=== PATIENT | female | born 1985 | race Asian ===

== ENCOUNTER 2019-12-21 19:45 | Inpatient (IN) | payer BC ==
[~2019-12-21] VITALS: Ht 160 cm; Wt 47.7 kg
[2019-12-21] MEDS ORDERED: PANTOPRAZOLE 80 MG in SODIUM CHLORIDE 0.9% 50 ML IV ONE (20:30)
[2019-12-21] MEDS ORDERED: SODIUM CHLORIDE 0.9% 1,000ML IVBOLUS ONE ×2 (20:30)
[2019-12-21] MEDS ORDERED: OCTREOTIDE 500 MCG in SODIUM CHLORIDE 0.9% 99 ML IV PRN (20:30)
[2019-12-21] MEDS ORDERED: OCTREOTIDE 100MCG/ML, 1ML (0.1MG/ML) IV ONE (20:30)
[2019-12-21] MEDS ORDERED: PANTOPRAZOLE 80 MG in SODIUM CHLORIDE 0.9% 100 ML IV SCH (20:30)
[2019-12-21] MEDS ORDERED: SODIUM CHLORIDE FLUSH 10ML SYR IVF ONE (20:30)
--- NOTE | 2019-12-21 20:37 | NUR ---
TWO UNITS UNCROSS-MATCHED PRBCs INFUSING NOW PER ORDERS. PT WITH VSS, HAD ABOUT ANOTHER 50ML HEMATEMESIS, REMAINS A&OX4, C/O SHARP MID ABD PAIN 04/18. FAMILY AT .
--- NOTE | 2019-12-21 20:39 | NUR ---
PT MOVED TO TRAUMA 2.
[2019-12-21 20:44] LABS: MEAN CORPUSCULAR HEMOGLOBIN 33.6 pg (27.0-34.8); MEAN CORPUSCULAR HGB CONC 33.8 g/dL (32.4-35.8); MEAN CORPUSCULAR VOLUME 99.4 fL (80-100); MEAN PLATELET VOLUME 7.7 fL (7.4-10.4); PLATELET COUNT 353 x10^3/uL (130-400); RED BLOOD COUNT 4.06 x10^6/uL (3.82-5.3); RED CELL DISTRIBUTION WIDTH 13.9 % (9.6-15.2)
[2019-12-21 20:46] LABS: INTERNATIONAL NORMALIZED RATIO 0.96 (0.93-1.1); PROTHROMBIN TIME 10.2 Seconds (9.6-11.5)
[2019-12-21 20:47] LABS: ALANINE AMINOTRANSFERASE 35 U/L (12-78); ALBUMIN 4.1 g/dL (3.4-5.0); ANION GAP 22 mmol/L (5-15); CALCIUM 9.2 mg/dL (8.5-10.1); CHLORIDE 96 mmol/L (98-107); CREATININE 1.14 mg/dL (0.55-1.02)
[2019-12-21 20:52] LABS: ALKALINE PHOSPHATASE 69 U/L (45-117); BILIRUBIN,TOTAL 0.8 mg/dL (0.2-1.0); TOTAL PROTEIN 8.5 g/dL (6.4-8.2)
[2019-12-21] MEDS ORDERED: PROPOFOL 10 MG/ML, 20ML ONE ×2 (20:54→21:22)
--- NOTE | 2019-12-21 20:58 | NUR ---
2 UNITS PRBCs DONE TRANSFUSING. NO S/S OF REACTION NOTED. PT REMAINS A&OX4, STABLE. NO MORE HEMATEMESIS AT THIS TIME. REPORTED TO KORTNEY CABEZAS. DR. MOFFETT AT FOR EGD.
--- NOTE | 2019-12-21 21:00 | NUR ---
REPORT RECEIVED AND CARE ASSUMED FOR PROCEDURE. 2 UNITS BLOOD TRANSFUSED. NO S/S OF ACUTE REACTION. PT AND ROOM PREPPED FOR ENDOSCOPY. DR MOFFETT AT BEDSIDE TO SPEAK WITH PT.
[2019-12-21 21:09] LABS: BASOPHILS # (AUTO) 0.06 x10^3/uL (0-0.1); BASOPHILS % (AUTO) 1 % (0-1); EOSINOPHILS # (AUTO) 0.11 x10^3/uL (0-0.4); EOSINOPHILS % (AUTO) 1 % (1-7); LYMPHOCYTES # (AUTO) 5.03 x10^3/uL (1-3.4); LYMPHOCYTES % (AUTO) 52 % (22-44); MD SCAN; MONOCYTES # (AUTO) 0.64 x10^3/uL (0.2-0.8); MONOCYTES % (AUTO) 7 % (2-9); NEUTROPHILS # (AUTO) 3.83 x10^3/uL (1.8-6.8); NEUTROPHILS % (AUTO) 40 % (42-75)
[2019-12-21] MEDS ORDERED: PROPOFOL 10 MG/ML, 20ML IVPush ONE ×2 (21:30→22:00)
--- NOTE | 2019-12-21 21:40 | NUR ---
PROCEDURE COMPLETED. TOTAL 590 MG PROPOFOL GIVEN. VSS. PT AWAKE AND ASKING QUESTIONS. MOVING ALL EXTREMITIES.
[2019-12-21] MEDS ORDERED: ONDANSETRON 2MG/ML, 2ML ONE (22:02)
--- NOTE | 2019-12-21 22:05 | NUR ---
PT C/O INCREASED NAUSEA. INTERMITTENT MILD DRY HEAVING. NO ACTIVE VOMITING NOTED. DISCUSSED WITH ERP AND ORDER FOR ZOFRAN RECEIVED.
[2019-12-21] MEDS ORDERED: ONDANSETRON 2MG/ML, 2ML IVPush ONE (22:30)
[2019-12-21] MEDS ORDERED: PROMETHAZINE 25 MG/ML, 1ML ONE (22:38)
--- NOTE | 2019-12-21 22:43 | NUR ---
PT ASSISTED TO BR VIA W/C. STEADY GAIT. CONTINUES WITH SEVERE NAUSEA. DISCUSSED WITH ERP AND ORDERS FOR 25 MG PHENERGAN IM RECEIVED. PT MEDICATED PER JAN.
[2019-12-21] MEDS ORDERED: PROMETHAZINE 25 MG/ML, 1ML IM ONE (23:00)
--- NOTE | 2019-12-21 23:24 | NUR ---
Pt resting comfortably with no s/s of acute distress. States nausea resolved at this time. Denies needs. VSS. Sinus on monitor. Call light in reach. Awaiting transfer to floor.
[2019-12-22 00:15] VITALS: BP 128/91
[2019-12-22 01:05] VITALS: BP 128/86
[2019-12-22] MEDS ORDERED: FOLIC ACID 1 MG TABLET PO ONE (02:30)
[2019-12-22] MEDS ORDERED: POLYETHYLENE GLYCOL 17 GM PACKET PO PRN (02:30)
[2019-12-22] MEDS ORDERED: LORazepam 1MG TABLET PO PRN ×4 (02:30)
[2019-12-22] MEDS ORDERED: ACETAMINOPHEN 325 MG TABLET PO PRN (02:30)
[2019-12-22] MEDS ORDERED: BISACODYL 10 MG SUPP PR PRN (02:30)
[2019-12-22] MEDS ORDERED: LORazepam 2 MG/ML, 1ML IV PRN ×5 (02:30)
[2019-12-22] MEDS ORDERED: LORazepam 0.5MG TABLET PO PRN (02:30)
[2019-12-22] MEDS ORDERED: ONDANSETRON ODT 4 MG PO PRN (02:30)
[2019-12-22] MEDS ORDERED: DOCUSATE 100 MG CAPSULE PO PRN (02:30)
[2019-12-22] MEDS ORDERED: hydrALAzine 20 MG/ML, 1ML IVPush PRN (02:30)
[2019-12-22] MEDS ORDERED: OXYcodone IR 5MG TABLET PO PRN (02:30)
[2019-12-22] MEDS ORDERED: ONDANSETRON 2MG/ML, 2ML IVPush PRN (02:30)
[2019-12-22] MEDS ORDERED: PROMETHAZINE 25 MG/ML, 1ML IM PRN (02:30)
[2019-12-22 03:17] LABS: FREE T4 (FREE THYROXINE) 1.05 ng/dL (0.76-1.46)
[2019-12-22] MEDS: D5%-0.9% NACL 1,000 ML IV SCH ×2 (03:39→10:30)
[2019-12-22] MEDS ORDERED: EPINEPHRINE SYRINGE 0.1 MG/ML, 10ML ONE (07:08)
[2019-12-22 07:26] VITALS: BP 124/86
[2019-12-22] MEDS ORDERED: THIAMINE 100MG TABLET PO SCH (11:35)
[2019-12-22 13:36] VITALS: BP 133/98
[2019-12-22] MEDS ORDERED: MAGN400T26 PO (14:10)
[2019-12-22] MEDS ORDERED: ONDA4TAB7 PO (14:10)
[2019-12-22] MEDS ORDERED: MULT1TAB60 PO (14:10)
[2019-12-22] MEDS ORDERED: FOLI-17 PO (14:10)
[2019-12-22] MEDS ORDERED: THIA100T67 PO (14:10)
[2019-12-22] MEDS ORDERED: PANT40TA3 PO (14:35)
[2019-12-23] MEDS ORDERED: THIAMINE 100 MG in DEXTROSE 5% 50 ML IVPB SCH (09:00)
== END 2019-12-22 15:40 | disposition home or self-care (01) | DRG 368 ==
LOC: ED 22:21 → EDIP 23:32 → 4WST 12-22 00:10 → DCLOUNGE 12-22 15:30
PROVIDERS: ADMIT Internal Medicine; ATTEND Internal Medicine
PROC: 30233N1 Transfusion of Nonautologous Red Blood Cells into Peripheral Vein, Percutaneous Approach (ICD-10-PCS; 2019-12-21)
PROC: 0W3P8ZZ Control Bleeding in Gastrointestinal Tract, Via Natural or Artificial Opening Endoscopic (ICD-10-PCS; principal; 2019-12-21 21:15)
DX: K22.6 Gastro-esophageal laceration-hemorrhage syndrome (principal); N17.0 Acute kidney failure with tubular necrosis; E87.2 Acidosis; K29.71 Gastritis, unspecified, with bleeding; F10.10 Alcohol abuse, uncomplicated; I10 Essential (primary) hypertension; Z80.0 Family history of malignant neoplasm of digestive organs; Z86.59 Personal history of other mental and behavioral disorders; Z87.19 Personal history of other diseases of the digestive system; Y90.9 Presence of alcohol in blood, level not specified
CPT/HCPCS: 36415; 96361; 96372; 96374; 96375; 99291; J7042; 36430; 80053; 80307; 83036; 83690; 83735; 84439; 84443; 84703; 85014; 85018; 85025; 85610; 85730; 86850; 86900; 86923; 99152; J2405; J2550; C9113; J7030; P9016

== ENCOUNTER 2020-05-09 21:16 | Emergency (ER) | payer BC ==
[~2020-05-09] VITALS: Ht 160 cm; Wt 48.4 kg
[~2020-05-09 21:16] MED LIST: FOLI-17 PO; MAGN400T26 PO; MULT-449 PO; ONDA4TAB7 PO; PANT40TA3 PO; THIA100T67 PO
[2020-05-09] MEDS ORDERED: DIPH,PERTUSS(ACELL),TET VAC/PF 0.5 ML IM-VACC ONE ×2 (22:30→23:16)
[2020-05-09] MEDS ORDERED: LIDOCAINE-MPF 1%, 5ML ONE (22:35)
[2020-05-09] MEDS ORDERED: NEOSPORIN OINT. PKT 1 PACKET ONE ×2 (23:20→23:22)
[2020-05-09 23:40] VITALS: BP 110/66
== END 2020-05-09 23:43 | disposition home or self-care (01) ==
LOC: ED 22:12
DX: S01.81XA Laceration without foreign body of other part of head, initial encounter (principal); W01.0XXA Fall on same level from slipping, tripping and stumbling without subsequent striking against object, initial encounter; Y93.89 Activity, other specified; Y92.89 Other specified places as the place of occurrence of the external cause; Y99.8 Other external cause status
CPT/HCPCS: 12051; 90471; 90715; 99284